=== PATIENT | male | born 1985 | race Two or more races ===

== ENCOUNTER 2016-10-02 16:45 | Emergency (ER) | payer OTHER ==
[~2016-10-02] VITALS: Ht 185.4 cm; Wt 80.6 kg
[~2016-10-02 16:45] MED LIST: NOHOMEMEDS; ZOFRAN ODT4 MG PO
[2016-10-02 17:32] LABS: HEMATOCRIT 41.8 % (38.0-50.0); MCH 31.2 PG (29.0-34.0); MCHC 34.9 G/DL (30.0-36.0); MCV 89.3 FL (86-99); PLATELET COUNT 342 K/uL (156-360); RBC DIS.WIDTH-CV 13.2 % (11.8-14.6); RBC DIS.WIDTH-SD 42.5 % (39-53); RED BLOOD COUNT 4.68 M/uL (4.00-5.50); WHITE BLOOD COUNT 13.4 K/uL (4.1-10.2)
[2016-10-02 17:36] LABS: CHLORIDE 102 mEq/L (99-109); POTASSIUM 3.9 mEq/L (3.7-5.4); SODIUM 139 mEq/L (136-147)
[2016-10-02 17:39] LABS: GLUCOSE 117 mg/dL (70-99)
[2016-10-02 17:40] LABS: ANION GAP 10 MEQ/L (2-14)
[2016-10-02 17:41] LABS: TOTAL BILIRUBIN 0.8 mg/dL (0.0-1.0)
[2016-10-02 17:42] LABS: ALKALINE PHOSPHATASE 66 IU/L (3-129); GFR ESTIMATE (CALCULATED) > 59 mL/min/
[2016-10-02 17:43] LABS: UREA NITROGEN (BUN) 14 mg/dL (9-23)
[2016-10-02 17:46] LABS: LIPASE 23 U/L (1.0-51.0)
[2016-10-02 18:08] LABS: ADD MIUA? NO; BILIRUBIN NEGATIVE; BLOOD NEGATIVE; COLOR YELLOW ((YELLOW)); GLUCOSE (STRIP) NEGATIVE; KETONES NEGATIVE; LEUKOCYTES NEGATIVE; NITRITE NEGATIVE; PH, URINE 7.5 (5-8); PROTEIN (STRIP) 30; SPECIFIC GRAVITY 1.026 (1.000-1.030); UCUL ADDED? NO; UROBILINOGEN 0.2 MG/DL (0.2-1.0)
[2016-10-02] MEDS ORDERED: LIBRIUM25 MG PO (19:19)
[2016-10-02] MEDS ORDERED: ZOFRAN4 MG PO (19:19)
[2016-10-02 19:28] VITALS: BP 132/85
== END 2016-10-02 19:31 | disposition home or self-care (01) ==
LOC: EME 16:45
DX: R11.2 Nausea with vomiting, unspecified (principal); F17.200 Nicotine dependence, unspecified, uncomplicated
CPT/HCPCS: 80053; 81003; 83690; 85027; 99281; 99284; J2405; J7030

== ENCOUNTER 2016-12-12 17:18 | Emergency (ER) | payer OTHER ==
[~2016-12-12] VITALS: Ht 188 cm; Wt 80.2 kg
[~2016-12-12 17:18] MED LIST changes: +LIBRIUM25 MG PO; +ZOFRAN4 MG PO
[2016-12-12] MEDS ORDERED: MOTRIN800 MG PO (18:22)
[2016-12-12 18:56] VITALS: BP 122/82
== END 2016-12-12 18:57 | disposition home or self-care (01) ==
LOC: EME 17:18
DX: S29.011A Strain of muscle and tendon of front wall of thorax, initial encounter (principal); F17.200 Nicotine dependence, unspecified, uncomplicated
CPT/HCPCS: 71020; 93005; 99281; 99284

== ENCOUNTER 2017-06-13 10:41 | Emergency (ER) | payer OTHER ==
[~2017-06-13] VITALS: Ht 188 cm; Wt 75.7 kg
[~2017-06-13 10:41] MED LIST changes: +MOTRIN800 MG PO
[2017-06-13 11:17] LABS: ADD MIUA? YES; BILIRUBIN NEGATIVE; BLOOD NEGATIVE; COLOR YELLOW ((YELLOW)); GLUCOSE (STRIP) NEGATIVE; KETONES NEGATIVE; LEUKOCYTES TRACE; NITRITE NEGATIVE; PROTEIN (STRIP) 30; UROBILINOGEN 0.2 MG/DL (0.2-1.0)
[2017-06-13 11:29] LABS: BACTERIA RARE /HPF; EPITHELIAL CELLS RARE /HPF; MUCUS 4+ /LPF; RED BLOOD CELLS 0-5 /HPF (0-5); UCUL ADDED? YES
[2017-06-13 11:39] LABS: HEMATOCRIT 37.8 % (38.0-50.0); MCH 30.9 PG (29.0-34.0); MCHC 34.4 G/DL (30.0-36.0); MCV 89.8 FL (86-99); MEAN PLAT.VOLUME 9.4 uM^3 (9.0-12.4); PLATELET COUNT 372 K/uL (156-360); RBC DIS.WIDTH-CV 13.3 % (11.8-14.6); RBC DIS.WIDTH-SD 43.8 % (39-53); RED BLOOD COUNT 4.21 M/uL (4.00-5.50)
[2017-06-13 11:48] LABS: CHLORIDE 101 mEq/L (99-109); POTASSIUM 3.8 mEq/L (3.7-5.4); SODIUM 141 mEq/L (136-147)
[2017-06-13 11:50] LABS: GLUCOSE 109 mg/dL (70-99)
[2017-06-13 11:51] LABS: ANION GAP 12 MEQ/L (2-14)
[2017-06-13 11:52] LABS: TOTAL BILIRUBIN 0.5 mg/dL (0.0-1.0)
[2017-06-13 11:54] LABS: ALKALINE PHOSPHATASE 62 IU/L (3-129); GFR ESTIMATE (CALCULATED) > 59 mL/min/
[2017-06-13 11:55] LABS: UREA NITROGEN (BUN) 13 mg/dL (9-23)
[2017-06-13 11:57] LABS: LIPASE 73 U/L (1.0-51.0)
[2017-06-13] MEDS ORDERED: ZOFRAN4 MG PO (14:25)
[2017-06-13 15:10] VITALS: BP 144/89
== END 2017-06-13 15:12 | disposition home or self-care (01) ==
LOC: EME 10:41
DX: R11.2 Nausea with vomiting, unspecified (principal); R19.7 Diarrhea, unspecified; K57.30 Diverticulosis of large intestine without perforation or abscess without bleeding; K76.0 Fatty (change of) liver, not elsewhere classified; F17.200 Nicotine dependence, unspecified, uncomplicated
CPT/HCPCS: 74177; 80053; 81003; 83690; 85027; 87086; 99281; 99284; J2405; J7030

== ENCOUNTER 2017-11-27 21:34 | Emergency (ER) | payer OTHER ==
[~2017-11-27] VITALS: Ht 188 cm; Wt 76.2 kg
[2017-11-27 22:20] LABS: HEMATOCRIT 43.8 % (38.0-50.0); MCH 31.3 PG (29.0-34.0); MCHC 34.2 G/DL (30.0-36.0); MCV 91.3 FL (86-99); PLATELET COUNT 422 K/uL (156-360); RBC DIS.WIDTH-CV 13.5 % (11.8-14.6); RBC DIS.WIDTH-SD 46.3 % (39-53)
[2017-11-27 22:33] LABS: ALBUMIN 5.1 g/dL (3.2-4.8)
[2017-11-27 22:34] LABS: CHLORIDE 96 mEq/L (99-109); POTASSIUM 3.6 mEq/L (3.7-5.4); SODIUM 140 mEq/L (136-147)
[2017-11-27 22:36] LABS: GLUCOSE 116 mg/dL (70-99); TOTAL PROTEIN 8.6 g/dL (6.4-8.3)
[2017-11-27 22:39] LABS: ALKALINE PHOSPHATASE 74 IU/L (3-129)
[2017-11-27 22:40] LABS: GFR ESTIMATE (CALCULATED) > 59 mL/min/ (58.99-99999)
[2017-11-27 22:41] LABS: AST (GOT) 26 IU/L (2-34); UREA NITROGEN (BUN) 11 mg/dL (9-23)
[2017-11-27 22:42] LABS: ALT (GPT) 31 IU/L (3-49)
[2017-11-27 23:33] LABS: APPEARANCE SL.HAZY ((CLEAR)); BILIRUBIN NEGATIVE; BLOOD NEGATIVE; COLOR YELLOW ((YELLOW)); GLUCOSE (STRIP) NEGATIVE; KETONES 5; LEUKOCYTES NEGATIVE; NITRITE NEGATIVE; PROTEIN (STRIP) 100; SPECIFIC GRAVITY 1.031 (1.000-1.030); UROBILINOGEN 0.2 MG/DL (0.2-1.0)
[2017-11-27 23:43] LABS: BACTERIA NONE SEEN /HPF; EPITHELIAL CELLS RARE /HPF; MUCUS 2+ /LPF; UCUL ADDED? NO; WHITE BLOOD CELLS 0-5 /HPF (0-5)
[2017-11-27 23:53] LABS: SERUM ETHYL ALCOHOL < 10 mg/dL
[2017-11-28] MEDS ORDERED: ZOFRAN4 MG PO (01:23)
[2017-11-28 01:54] VITALS: BP 151/101
== END 2017-11-28 01:56 | disposition home or self-care (01) ==
LOC: EME 21:34
DX: R11.2 Nausea with vomiting, unspecified (principal); R21 Rash and other nonspecific skin eruption; F17.200 Nicotine dependence, unspecified, uncomplicated
CPT/HCPCS: 74177; 80053; 81003; 85027; 99281; 99284; G0480; J2405; J3411; J7030